=== PATIENT | female | born 1990 | race Caucasian/White ===

== ENCOUNTER → 2016-12-14 | Outpatient (CLI) | payer BC ==
--- NOTE | 2016-12-14 15:46 | Diagnostic Imaging Report ---
EXAMINATION: Transabdominal and transvaginal pelvic ultrasound. INDICATION: Pelvic pain. FINDINGS: The uterus is 6.8 x 4.6 x 4.2 cm. The endometrial stripe is 0.3 cm in thickness. There is an intrauterine contraceptive device in place. The right ovary is 4.4 x 4 by 3.3 cm. The left ovary is 2.9 x 2.5 x 4.4 cm. Multiple follicles are seen with one containing hypoechoic layering material with internal vascularity suggestive of a hemorrhagic follicle measuring 2 cm in the left ovary. There is arterial and venous waveforms demonstrated in the right ovary. The left ovary demonstrates arterial waveforms. IMPRESSION: Left ovarian 2 cm hypoechoic lesion likely related to a hemorrhagic follicle. Dictated by: Dictated on workstation # [id number]
== END ==
LOC: RAD 14:42
PROVIDERS: ATTEND Family Medicine
DX: M54.5 Low back pain (principal); R10.2 Pelvic and perineal pain
CPT/HCPCS: 76830; 76856

== ENCOUNTER → 2017-03-24 | Outpatient (CLI) | payer BC | LOC: LAB 12:45 | PROVIDERS: ATTEND Family Medicine | DX: D69.3 Immune thrombocytopenic purpura (principal) | CPT/HCPCS: 36415; 85049 ==

== ENCOUNTER → 2017-04-19 | Outpatient (CLI) | payer BC ==
--- NOTE | 2017-04-19 08:50 | Diagnostic Imaging Report ---
PROCEDURE: US abdomen complete. TECHNIQUE: Multiple real-time grayscale images were obtained over the abdomen in various projections. INDICATION: Right upper quadrant pain. FINDINGS: The pancreas appears unremarkable. The abdominal aorta is normal in caliber. It is 1.6 cm in caliber. The liver is fairly homogeneous with no focal lesion. Hepatopetal flow in the portal vein seen. The gallbladder demonstrates no stones, wall thickening, or pericholecystic fluid. The CBD is 3 mm in caliber. The spleen is 7.7 cm in length. The right kidney is 10.5 cm, and the left kidney is 11.1 cm. There is no hydronephrosis or focal lesion. No ascites is seen. Sonographic Wan sign reportedly negative. IMPRESSION: Unremarkable exam. Dictated by: Dictated on workstation # [id number]
== END ==
LOC: RAD 06:48
DX: R10.11 Right upper quadrant pain (principal); R53.83 Other fatigue
CPT/HCPCS: 76700